=== PATIENT | female | born 1960 | race Caucasian/White ===

== ENCOUNTER 2017-12-09 08:54 | Observation (INO) ==
--- NOTE | 2017-12-09 09:21 | Emergency Department Note ---
Disposition Clinical Impression: Atypical chest pain Disposition: Admitted As Inpatient Condition: Good Referrals: Tree Mcclendon MD [Primary Care Provider] - Forms: ED Satisfaction Letter Time of Disposition: 12:38 General Adult HPI - General Chief complaint: ED Chest Pain Stated complaint: CP Time Seen by Provider: 12/09/17 09:04 Source: EMS Mode of arrival: ambulatory Limitations: no limitations Nursing Notes Reviewed: Yes Vital Signs Reviewed: Yes - History of Present Illness HPI Narrative: 57 year old woman with pmh significant for HTN and GERD who presents to ED with 3-4 day hx of constant, worsening, midsternal chest pain she describes as pressure/squeezing with radiation straight through to her back. She additionally has had nausea but denies diplopia, blurry vision, diaphoresis, neck/arm/jaw radiation, sob, palpitations, pleuritic chest pain, cough, metallic taste in mouth, edema, numbness/paresthesia, abdominal pain, vomiting, or syncope. She has had periods of lightheadedness but this is not new as she has this occasionally over last few years with [facility]. She has had nasal congestion last couple days without subjective fever/chills. Pt Subjective Complaint: chest pain Onset (ago): day(s) Location: chest Radiation: back Pain Severity: moderate Pain Scale: 5 Quality: other (pressure/squeezing) Consistency: constant Improves with: nothing Worsens with: movement Associated symptoms: Reports: other (nausea, lightheaded) - Related Data Home Medications Medication Instructions Recorded Confirmed Pantoprazole Sodium [Protonix] 40 mg PO DAILY 08/04/15 12/09/17 Pramipexole Di-HCl [Pramipexole 0.125 mg PO HS PRN 08/04/15 12/09/17 Dihydrochloride] Sertraline [Zoloft] 50 mg PO DAILY 08/04/15 12/09/17 Metoprolol Succinate [Kapspargo 25 mg PO DAILY 12/09/17 12/09/17 Sprinkle] Allergies Allergy/AdvReac Type Severity Reaction Status Date / Time dicyclomine [From Bentyl] Allergy Hypertensio Verified 05/30/16 12:27 n All systems ED: reviewed and negative except as stated. Constitutional: Denies: fever, chills Eyes: Denies: vision change ENT ED: Reports: congestion Cardiovascular: Reports: chest pain. Denies: palpitations, dyspnea on exertion , orthopnea, edema, syncope Respiratory: Denies: cough, dyspnea, sputum production Gastrointestinal: Reports: nausea. Denies: abdominal pain, vomiting Musculoskeletal: Reports: back pain. Denies: neck pain Neurological: Denies: numbness, paresthesias Past Medical History - Past Medical History Medical history: Reports: GERD, hypertension Surgical history: Reports: appendectomy Psychiatric history: Reports: no psych history - Social History Smoking Status: Never smoker Smokeless Tobacco Status: No Alcohol use: Reports: none Drug use: Reports: none Physical Exam - General Limitations: no limitations General appearance: alert, in no apparent distress - Head Head exam: atraumatic, normocephalic, normal inspection - Eye Eye exam: Present: normal appearance - ENT ENT exam: mucous membranes moist - Neck Neck exam: Present: normal inspection, trachea midline - Chest Chest inspection: Present: normal inspection, symmetric chest wall rise - Respiratory Respiratory exam: Present: normal lung sounds bilaterally - Cardiovascular Cardiovascular exam: Present: regular rate, normal rhythm, normal heart sounds, +S1, +S2 - Abdominal Exam Abdominal exam: Present: soft, Non-Tender. Absent: distention, guarding, rebound, rigidity - Extremities Exam Extremities exam: Present: normal capillary refill. Absent: pedal edema - Back Exam Back exam: Present: normal inspection. Absent: tenderness - Neurological Exam Neurological exam: Present: alert - Psychiatric Psychiatric exam: Present: normal affect - Skin Skin exam: Present: warm, dry, intact, normal color Course Course Narrative: 3-4 day hx of pressure/squeezing midsternal chest pain with radiation to back. Had 4 81mg asa enroute. Will do cardiac workup and trial nitro now. ECG 0905: nsr, hr85, pr 150, qt368, normal p axis, low voltage precordial leads , no acute st elevations/depressions or t wave inversions. 1050: Cbc, bmp, lft's, lipase wnl, troponin neg. She refused nitro previously but will take it now. Pain is unchanged. She indicated she does not want to be admitted to the hospital for a stress test and will do an outpatient stress test if needed. Will repeat troponin at 1245. 1130: All chest pain and back pain resolved with [address] nitro paste. 1235: Spoke to hospitalist service for admission who accepted her for continued cardiac workup and likely stress test. Vital Signs Temperature 98.4 F 12/09/17 08:59 Pulse Rate 80 12/09/17 08:59 Respiratory Rate 18 12/09/17 08:59 Blood Pressure 130/63 12/09/17 08:59 O2 Sat by Pulse Oximetry 100 12/09/17 08:59 Temperature 98.4 F 12/09/17 08:59 Pulse Rate 72 12/09/17 11:45 Respiratory Rate 16 12/09/17 11:45 Blood Pressure 112/69 12/09/17 11:45 O2 Sat by Pulse Oximetry 98 12/09/17 11:45 Oxygen Delivery Oxygen Delivery Room Air Medical Decision Making - Lab Data Result diagrams: 12/09/17 09:44 12/09/17 09:44 Lab Results 12/09/17 12/09/17 Range/Units 09:44 09:44 WBC 5.5 (4.3-11.1) K/mcL RBC 4.16 (3.82-4.97) M/mcL Hgb 12.6 (11.5-15.4) g/dL Hct 38.7 (35.3-44.9) % MCV 93.0 (83.0-100.0) fL MCH 30.3 (28.0-33.3) pg MCHC 32.6 (31.6-35.5) g/dL RDW 12.9 (11.5-14.5) % Plt Count 262 (140-400) K/mcL MPV 9.8 (9.4-12.4) fL Immature Gran % 0.2 (0-4) % Seg Neutrophils % 62.3 % Lymphocytes % 28.5 % Monocytes % 6.4 % Eosinophils % 1.3 % Basophils % 1.3 % Neutrophils # 3.4 (1.6-8.9) K/mcL Lymphocytes # 1.6 (0.6-4.6) K/mcL Monocytes # 0.4 (0.0-1.3) K/mcL Eosinophils # 0.1 (0.0-0.6) K/mcL Basophils # 0.1 (0.0-0.2) K/mcL Sodium 141 (136-145) mEq/L Potassium 4.1 (3.5-5.1) mEq/L Chloride 104 (98-107) mEq/L Carbon Dioxide 29 (23-29) mEq/L BUN 10 (6-20) mg/dL Creatinine 0.78 (0.60-1.20) mg/dL Est GFR ( Amer) > 60 (> 60) Est GFR (Non-Af Amer) > 60 (> 60) BUN/Creatinine Ratio 13 (6-26) Glucose 76 (70-105) mg/dL Calculated Osmolality 290 (280-300) Calcium 9.8 (8.6-10.3) mg/dL Total Bilirubin 0.4 (0.3-1.0) mg/dL Direct Bilirubin 0.0 (0.0-0.2) mg/dL Indirect Bilirubin 0.4 (0.0-1.2) mg/dL AST 15 (13-39) Units/L ALT 12 (7-52) Units/L Alkaline Phosphatase 100 (34-104) Units/L Troponin I < 0.03 (< 0.04) ng/mL Serum Total Protein 7.2 (6.4-8.9) g/dL Albumin 4.4 (3.5-5.7) g/dL Globulin 2.8 (2.4-3.5) g/dL Albumin/Globulin Ratio 1.6 (1.1-2.2) Lipase 17 (11-82) Units/L Attestation Statement - Attestation Attestation: I examined this patient and my medical decision-making was reviewed with the Resident Physician, Dr. Mathews. I agree with the documented findings, disposition and treatment plan as described except to the extent set forth below. Patient's 57-year-old white female who presents the emergency department today with complaints of substernal heavy chest pressure, this is been intermittent for the past 3 days not exertionally related. Patient states she is also felt short of breath with this, nauseated and just complained of some generalized malaise. Patient reports her pain is 5 out of 10 radiating through to her back. Patient has history of hypertension but no prior cardiac history. Patient states that when she was seen a year ago for her physical exam by her primary care physician and her cholesterol is borderline elevated as well but they have not yet started medications. Patient is a nonsmoker. Patient states she had a stress test approximately 10-11 years ago and at that time everything looked okay and she is not followed up since that time. I agree with patient's physical exam findings as documented. Vital signs are stable patient's resting comfortably in no acute distress. Patient's EKG shows a normal sinus rhythm without acute ischemia. Patient's chest x-ray is within normal limits, lab evaluation including troponin is within normal limits. Patient received aspirin which she self administered at home prior to arrival, she took 4 baby aspirin states the pain improved from an 8 to a 5. Here in the emergency department she received one nitroglycerin with complete resolution of her pain. Patient is resting comfortably with stable vital signs at this time and agreed to admission for further evaluation for chest pain. Case will be discussed with hospitalist service and patient will be admitted.
[2017-12-09] MEDS ORDERED: Ondansetron ODT 4 MG TAB.RAPDIS SL ONE (09:38)
[2017-12-09] MEDS ORDERED: Nitroglycerin 0.4 MG TAB.SUBL SL PRN (09:46)
[2017-12-09 09:53] LABS: Basophils # 0.1 K/mcL (0.0-0.2); Basophils % 1.3 %; Eosinophils # 0.1 K/mcL (0.0-0.6); Eosinophils % 1.3 %; Hematocrit 38.7 % (35.3-44.9); Hemoglobin 12.6 g/dL (11.5-15.4); Immature Granulocytes % 0.2 % (0-4); Lymphocytes # 1.6 K/mcL (0.6-4.6); Lymphocytes % 28.5 %; Mean Corpuscular HGB Conc 32.6 g/dL (31.6-35.5); Mean Corpuscular Hemoglobin 30.3 pg (28.0-33.3); Mean Platelet Volume 9.8 fL (9.4-12.4); Monocytes # 0.4 K/mcL (0.0-1.3); Monocytes % 6.4 %; Neutrophils # 3.4 K/mcL (1.6-8.9); Platelet Count 262 K/mcL (140-400); Red Blood Count 4.16 M/mcL (3.82-4.97); Red Cell Distribution Width 12.9 % (11.5-14.5); Segmented Neutrophils % 62.3 %
[2017-12-09 10:18] LABS: Troponin I < 0.03 ng/mL (< 0.04)
[2017-12-09 10:19] LABS: BUN/Creatinine Ratio 13 (6-26); Blood Urea Nitrogen 10 mg/dL (6-20); Calcium 9.8 mg/dL (8.6-10.3); Carbon Dioxide 29 mEq/L (23-29); Chloride 104 mEq/L (98-107); Glucose 76 mg/dL (70-105); Osmolality,Calculated 290 (280-300); Potassium 4.1 mEq/L (3.5-5.1); Sodium 141 mEq/L (136-145); eGFR For Non-African Americans > 60 (> 60)
[2017-12-09 11:07] LABS: Alanine Aminotransferase 12 Units/L (7-52); Albumin 4.4 g/dL (3.5-5.7); Albumin/Globulin Ratio 1.6 (1.1-2.2); Alkaline Phosphatase 100 Units/L (34-104); Aspartate Amino Transferase 15 Units/L (13-39); Bilirubin,Indirect 0.4 mg/dL (0.0-1.2); Bilirubin,Total 0.4 mg/dL (0.3-1.0); Globulin 2.8 g/dL (2.4-3.5); Lipase 17 Units/L (11-82); Total Protein 7.2 g/dL (6.4-8.9)
[2017-12-09] MEDS ORDERED: Nitroglycerin 1 INCH/GM PACKET TP ONE (11:36)
[2017-12-09] MEDS ORDERED: Naloxone 0.4 MG/ML INJ IVP PRN (12:37)
[2017-12-09] MEDS ORDERED: Metoprolol XL (24 HR) Succ 25 MG TAB.ER.24H PO SCH (12:45)
--- NOTE | 2017-12-09 13:07 | Internal Med History&Physical ---
Date of Encounter: 12/09/17 Time of Encounter: 12:57 Internal Medicine - H&P: HPI Chief complaint: chest pain Admitted From: Home Plans for Post Hospital Care: Home History of present illness: Ms. Contreras is a 57 year old female past medical history significant for hypertension. Patient presented to the emergency room complaining of 3 days' duration of chest pain which she described as squeezing, pressure-like 10 out of 10 radiating to her back, denies aggravating factors, alleviated by nitroglycerin sublingual. reports feeling short of breath when she was experiencing the chest pain. Patient reports that the pain is not associated with exertion, and the pain is started while she was siting at home. denies lifting heavy objects, cold-like symptoms. Denies vomiting, but reports feeling nauseated. Patient reports having similar chest pain about 8 years ago and the work up was negative. But reports that at that time she did not have an stress test done. Symptoms resolved after patient received Nitroglycerin Sublingual. Past Med Surg Social Fam HX - Past Medical History Medical history: GERD, hypertension Additional medical history: restless leg, Psychiatric history: no psych history - Past Surgical History Surgical History: appendectomy Additional surgical history: RCR. CTR. Oral Surgery. Ovarian Surgery. Bilat.Feet. tarsal tunnel bilateral. Hartley chip - Social History Smoking Status: Never smoker Smokeless Tobacco Status: No Alcohol use: none Drug use: none - Family History Mother Family Member Ethnicity: Non- Hx Family Cardiac Disorders: Yes (cardiac arrest) Father Family Member Ethnicity: Non- Living Status: Hx Family Cancer: Yes (liver cancer) Internal Medicine - H&P: Meds Pantoprazole Sodium [Protonix] 40 mg PO DAILY 08/04/15 [History] Pramipexole Di-HCl [Pramipexole Dihydrochloride] 0.125 mg PO HS PRN 08/04/15 [ History] Sertraline [Zoloft] 50 mg PO DAILY 08/04/15 [History] Metoprolol Succinate [Kapspargo Sprinkle] 25 mg PO DAILY 12/09/17 [History] 3 Allergy/AdvReac Type Severity Reaction Status Date / Time dicyclomine [From Bentyl] Allergy Hypertensio Verified 05/30/16 12:27 n All Systems PM: A 10-system review of systems was performed and is negative for pertinent findings except as documented above in the HPI. - Constitutional Constitutional: no chills, no fever(s), no falls, no weakness - EENT Eyes: no change in vision, no dry eye Nose, mouth and throat: no change in voice - Cardiovascular Cardiovascular ROS IM: chest pain, no dyspnea, no dyspnea on exertion, no palpitations, no paroxysmal nocturnal dyspnea - Respiratory Respiratory: no cough, no wheezing, no snoring - Gastrointestinal Gastrointestinal: loose stools, nausea, no abdominal pain, no belching, no diarrhea, no melena - Musculoskeletal Musculoskeletal ROS IM: no muscle cramps, no numbness - Integumentary Integumentary IM: no rash - Neurological Neurological ROS: no weakness - Psychiatric Psychiatric: no suicidal ideation, no visual hallucinations - Endocrine Endocrine IM: no cold intolerance, no deeping of the voice, no fatigue (rest of the review of system unremarkable.) - Constitutional Vitals: Temp Pulse Resp BP Pulse Ox 98.4 F 72 16 112/69 98 12/09/17 08:59 12/09/17 11:45 12/09/17 11:45 12/09/17 11:45 12/09/17 11:45 Exam: General: Alert and oriented x4. Distress on presentation improved after Nitro SUbL Skin: Normal color, no rash, no lesions. HEENT: EOM, pupils equal, round and reactive. Cardiovascular: RRR, Normal S1 & S2, no rubs, murmurs or gallops. Lungs: Clear breath sounds to auscultation bilaterally, no wheezes or crackles. Abdomen:Soft, non-tender, no rigidity. Extremities: No deformity, no edema or tenderness, no joint swelling or clubbing. Neurological:Normal cognition and motor skills. Rest of the physical exam is non contributory Internal Med - H&P Results - Labs CBC & Chem 7: 12/09/17 13:04 12/09/17 09:44 - Assessment and plan (1) Atypical chest pain Current Visit: Yes Status: Acute Assessment and plan: chest pain relieved by Nitro sublingual. No chest pain during my evaluation. Plan Telemetry monitoring Serial trops Nuclear medicine stress test We will consider cardiology evaluation as an inpatient pending those results. Continue nitroglycerin 0.4mg SubL q5min x3 PRN for chest pain. TTE (2) Hypertension Current Visit: Yes Status: Chronic Assessment and plan: We will hold patient home antihypertensive medication until stress test done. Qualifiers: Hypertension type: unspecified Qualified Code(s): I10 - Essential (primary ) hypertension (3) DVT prophylaxis Current Visit: Yes Status: Acute Assessment and plan: Started on heparin 5000 units subcutaneous twice a day for DVT prophylaxis. - Time Spent With Patient Total time spent is greater than 50% in coordination of care (as documented) at patient's floor/unit and/or counseling patient: 25 - 35 minutes
[2017-12-09 13:27] LABS: Hematocrit 37.6 % (35.3-44.9); Hemoglobin 12.3 g/dL (11.5-15.4); Mean Corpuscular HGB Conc 32.7 g/dL (31.6-35.5); Mean Corpuscular Volume 91.7 fL (83.0-100.0); Mean Platelet Volume 10.1 fL (9.4-12.4); Platelet Count 274 K/mcL (140-400); Red Cell Distribution Width 12.8 % (11.5-14.5)
[2017-12-09 14:00] LABS: Chol/HDL Ratio 4.5 (0-4.9)
[2017-12-09] MEDS: *HR* Heparin 5,000 UNIT/ML VIAL SQ SCH ×2 (14:57→21:14)
[2017-12-09] MEDS: traMADol 50 MG TABLET PO PRN ×2 (15:11→21:14)
[2017-12-10 00:42] LABS: Basophils # 0.1 K/mcL (0.0-0.2); Eosinophils # 0.1 K/mcL (0.0-0.6); Eosinophils % 1.6 %; Hematocrit 36.6 % (35.3-44.9); Hemoglobin 11.7 g/dL (11.5-15.4); Immature Granulocytes % 0.2 % (0-4); Lymphocytes % 48.4 %; Mean Corpuscular Hemoglobin 29.9 pg (28.0-33.3); Mean Corpuscular Volume 93.6 fL (83.0-100.0); Mean Platelet Volume 9.9 fL (9.4-12.4); Monocytes # 0.4 K/mcL (0.0-1.3); Monocytes % 6.5 %; Neutrophils # 2.6 K/mcL (1.6-8.9); Platelet Count 256 K/mcL (140-400); Red Blood Count 3.91 M/mcL (3.82-4.97); Red Cell Distribution Width 12.8 % (11.5-14.5); Segmented Neutrophils % 42.3 %
[2017-12-10 00:56] LABS: BUN/Creatinine Ratio 12 (6-26); Blood Urea Nitrogen 10 mg/dL (6-20); Calcium 9.3 mg/dL (8.6-10.3); Carbon Dioxide 28 mEq/L (23-29); Chloride 104 mEq/L (98-107); Glucose 133 mg/dL (70-105); Magnesium 1.9 mg/dL (1.6-2.6); Osmolality,Calculated 293 (280-300); Phosphorous 3.3 mg/dL (2.7-4.5); Potassium 3.8 mEq/L (3.5-5.1); Sodium 141 mEq/L (136-145); eGFR For Non-African Americans > 60 (> 60)
[2017-12-10] MEDS: *HR* Heparin 5,000 UNIT/ML VIAL SQ SCH (05:12)
--- NOTE | 2017-12-10 07:34 | Electrocardiograph Report ---
[place] [facility] Test Date: 2017-12-09 Pat Name: Jia Contreras Department: EXAM10 Room: 3B34 Gender: F Commercial Director: : 1960 Requested By: Luis Eduardo Mathews Order Number: [id number] Reading MD: Evan Vivar Measurements Intervals [place] Rate: 81 P: 1 DC: 158 QRS: -1 QRSD: 97 T: 20 QT: 380 QTc: 442 Interpretive Statements Sinus rhythm Low voltage, precordial leads Electronically Signed On 12-10-2017 7:32:44 EDT by Evan Vivar
--- NOTE | 2017-12-10 11:19 | Discharge Summary ---
Date of Encounter: 12/10/17 Time of Encounter: 11:15 - Discharge Diagnosis (1) Atypical chest pain Priority: Primary Status: Acute Assessment and Plan: 57 year old female past medical history significant for hypertension. Patient presented to the emergency room complaining of 3 days' duration of chest pain which she described as squeezing, pressure-like 10 out of 10 radiating to her back, denies aggravating factors, alleviated by nitroglycerin sublingual. reports feeling short of breath when she was experiencing the chest pain. Patient reports that the pain is not associated with exertion, and the pain is started while she was siting at home. She was assessed with chest pain r/o ACS and had troponins, echo and a nuclear stress test done which all came back WNL. She was discharged on aspirin and protonix and counseled to follow up with her PCP (2) Hypertension Priority: Primary Status: Chronic Qualifiers: Hypertension type: unspecified Qualified Code(s): I10 - Essential (primary ) hypertension (3) DVT prophylaxis Priority: Primary Status: Acute Hospital course: Ms. Contreras is a 57 year old female - Time Spent with Patient Total time spent providing and/or coordinating discharge services: - Discharge Medications Prescriptions: Aspirin 81 mg PO DAILY 30 Days #30 tab.[email or web address] Home Medications: Pantoprazole Sodium [Protonix] 40 mg PO DAILY 08/04/15 [History] Pramipexole Di-HCl [Pramipexole Dihydrochloride] 0.125 mg PO HS PRN 08/04/15 [ History] Sertraline [Zoloft] 50 mg PO DAILY 08/04/15 [History] Metoprolol Succinate [Kapspargo Sprinkle] 25 mg PO DAILY 12/09/17 [History] Aspirin 81 mg PO DAILY 30 Days #30 tab.chew 12/10/17 [Rx] Allergies/Adverse Reactions: 3 Allergy/AdvReac Type Severity Reaction Status Date / Time dicyclomine [From Bentyl] Allergy Hypertensio Verified 05/30/16 12:27 n Date of admission: 12/09/17 12:40 Primary care physician: Tree Mcclendon MD - Constitutional Vitals: Temp Pulse Resp BP Pulse Ox 98.4 F 67 16 103/64 96 12/10/17 06:57 12/10/17 06:57 12/10/17 06:57 12/10/17 06:57 12/10/17 06:57 Exam: General: Alert and oriented x4. NAD Skin: Normal color, no rash, no lesions. HEENT: EOM, pupils equal, round and reactive. Cardiovascular: RRR, Normal S1 & S2, no rubs, murmurs or gallops. Lungs: Clear breath sounds to auscultation bilaterally, no wheezes or crackles. Abdomen:Soft, non-tender, no rigidity. Extremities: No deformity, no edema or tenderness, no joint swelling or clubbing. Neurological:Normal cognition and motor skills. Rest of the physical exam is non contributory - Patient Status Disposition: Home, Self-Care Condition: Good - Discharge Instructions Instructions: Aspirin (By mouth), Chest Pain (DC) Follow Up With: Tree Mcclendon MD [Primary Care Provider] - 12/16/17 10:15 am
[2017-12-10 11:22] VITALS: BP 120/73
== END 2017-12-10 12:09 | disposition home or self-care (01) ==
LOC: EMEROOARM 08:54 → 3BNU 08:54
PROVIDERS: ADMIT Internal Medicine; ATTEND Internal Medicine